=== PATIENT | female | born 1990 | race Caucasian/White ===

== ENCOUNTER 2016-07-17 11:14 | Emergency (ER) | payer OTHER ==
--- NOTE | 2016-07-17 11:57 | ED Physician Documentation ---
Sore Throat/Dental Pain - HISTORIAN Historian: patient - HPI Chief Complaint: Sore Throat Additional Information: sore throat pos for strept temp= 100.9--has freq strept throat resp well to amox Onset: days ago (2) Associated Symptoms: fever, chills, sore throat, mild, moderate, swollen glands. denies: unable to swallow, runny nose, cough - ROS CONST: no problems CVS/RESP: none GI/: denies: problems urinating, nausea, vomiting MS/SKIN/LYMPH: denies: muscle aches, rash, leg swelling, ankle swelling NEURO/PSYCH: denies: headache - PAST HX Past History: other (freqw prev strept throat) Immunizations: UTD Allergies/Adverse Reactions: Allergies Allergy/AdvReac Type Severity Reaction Status Date / Time No Known Drug Allergies Allergy Verified 07/17/16 11:53 Home Medications: Ambulatory Orders Medication Instructions Recorded NK [NK] 05/22/16 - SOCIAL HX Smoking History: less than 1 pack/day Alcohol Use: rarely Drug Use: none - FAMILY HX Family History: No - VITAL SIGNS Vital Signs: Vital Signs Temp Pulse Resp BP Pulse Ox 121/77 05/22/16 19:56 - REVIEWED ASSESSMENTS Nursing Assessment Reviewed: Yes Vitals Reviewed: Yes Sore throat Physical Exam - EXAM General Appearance: mild distress Head/Neck: head nml inspection, trachea midline, cervical lymphadenopathy, anterior. No: no lymphadenopathy, pain over sinuses, mandibular swelling (R), mandibular swelling (L) Eyes: eyes nml inspection Mouth/Throat: lips nml, gums nml, voice nml, no drooling, no air way problems. No: pharynx nml Ear/Nose: nml inspection Respiratory: no resp. distress, breath sounds nml CVS: reg. rate & rhythm, heart sounds nml Abdomen: soft, non-tender Extremities: non-tender, nml ROM Skin: warm/dry, normal color. No: cyanosis, diaphoresis, jaundice Neuro/Psych: oriented x3, mood/affect nml Discharge Clincal Impression: Streptococcal sore throat Home Medications: Ambulatory Orders NK [NK] 05/22/16 Condition: Good Disposition: 01 HOME, SELF-CARE Decision to Admit: NO Decision Time: 12:00
[2016-07-17 11:58] VITALS: BP 126/77
== END 2016-07-17 12:12 | disposition home or self-care (01) ==
LOC: ED 11:14
DX: J02.0 Streptococcal pharyngitis (principal); F17.210 Nicotine dependence, cigarettes, uncomplicated
CPT/HCPCS: 87880; 99283

== ENCOUNTER 2017-08-21 15:22 | Emergency (ER) | payer SELFPAY ==
--- NOTE | 2017-08-21 15:42 | ED Physician Documentation ---
Sore Throat/Dental Pain - HISTORIAN Historian: patient - HPI Chief Complaint: Sore Throat Additional Information: 2 day history of nasal drainage, green, no blood. has devleoped a sore throat. Not having much sinus pressure. Eyes have been watering some. No cough, nausea, vomiting or diarrhea. No other family members sick. Onset: days ago (2 days) Associated Symptoms: sore throat. denies: fever, chills Further Comments: no - ROS CONST: no problems - PAST HX Past History: none Other History: none Immunizations: referred to PCP Allergies/Adverse Reactions: Allergies Allergy/AdvReac Type Severity Reaction Status Date / Time No Known Drug Allergies Allergy Verified 07/17/16 11:53 Home Medications: Ambulatory Orders Medication Instructions Recorded Amoxicillin [Trimox] 500 mg PO TID #60 tab.chew 07/17/16 - SOCIAL HX Smoking History: less than 1 pack/day Alcohol Use: none Drug Use: none - FAMILY HX Family History: Yes - VITAL SIGNS Vital Signs: Vital Signs Temp Pulse Resp BP Pulse Ox 126/77 07/17/16 12:12 ED Results Lab/Radiology - Orders Orders: ED Orders Category Date Time Status Rapid Strep [GRP A STREP SCREEN] Routine Lab 08/21/17 Ordered Sore throat Physical Exam - EXAM General Appearance: no acute distress, alert Head/Neck: head nml inspection, trachea midline, no lymphadenopathy, thyroid nml. No: pain over sinuses Mouth/Throat: lips nml, gums nml, pharyngeal erythema (mild). No: gum swelling around teeth, tonsillar exudate, tonsillar swelling Ear/Nose: nml inspection Respiratory: no resp. distress, breath sounds nml, respiratory distress. No: wheezes, rales, rhonchi CVS: reg. rate & rhythm, heart sounds nml Extremities: non-tender, nml ROM Skin: warm/dry, normal color Neuro/Psych: oriented x3, mood/affect nml Discharge Clincal Impression: Viral illness Referrals: Primary Doctor,No [Primary Care Provider] - 2 Days Additional Instructions: Drink a lot of fluids. Gargle with salt water. Use throat lozenges to help with sore throat. Try using some Claritin or Zrytex to help with nasal drainage. A throat culture will be sent off. Condition: Stable Disposition: 01 HOME, SELF-CARE Decision to Admit: NO Date of Decison to Admit: 08/21/17 Decision Time: 15:49
[2017-08-21 15:46] VITALS: BP 109/73
== END 2017-08-21 15:59 | disposition home or self-care (01) ==
LOC: ED 15:22
DX: B34.9 Viral infection, unspecified (principal)
CPT/HCPCS: 87070; 87880; 99282

== ENCOUNTER 2017-09-12 18:56 | Emergency (ER) | payer SELFPAY ==
[2017-09-12 19:14] VITALS: BP 123/86
[2017-09-12] MEDS ORDERED: PENICILLIN G BENZATHINE 1,200,000 UNITS INJ IM ONE (19:23)
--- NOTE | 2017-09-12 19:23 | ED Physician Documentation ---
Sore Throat/Dental Pain - HISTORIAN Historian: patient - HPI Stated Complaint: Sore throat Chief Complaint: Sore Throat Further Comments: yes (26 year old female patient presents with complaints of sore throat which started 4 days ago; c/o severe pain with swollowing.) - ROS CONST: no problems CVS/RESP: none GI/: denies: nausea, vomiting MS/SKIN/LYMPH: denies: muscle aches, rash, leg swelling, ankle swelling, other NEURO/PSYCH: denies: none Comment: LMP - 2 weeks ago - PAST HX Past History: none Immunizations: UTD Allergies/Adverse Reactions: Allergies Allergy/AdvReac Type Severity Reaction Status Date / Time No Known Drug Allergies Allergy Verified 09/12/17 19:14 Home Medications: Ambulatory Orders Medication Instructions Recorded NK [NK] 09/12/17 - SOCIAL HX Smoking History: non-smoker - FAMILY HX Family History: No - VITAL SIGNS Vital Signs: Vital Signs Temp Pulse Resp BP Pulse Ox 100.3 F H 88 16 123/86 96 09/12/17 18:56 09/12/17 18:56 09/12/17 18:56 09/12/17 18:56 09/12/17 18:56 - REVIEWED ASSESSMENTS Nursing Assessment Reviewed: Yes Vitals Reviewed: Yes ED Results Lab/Radiology - Orders Orders: ED Orders Category Date Time Status Penicillin G Benzathine [Bicillin l-A] Med 09/12/17 19:23 Discontinued 1,200,000 units IM NOW ONE Sore throat Physical Exam - EXAM General Appearance: mild distress Head/Neck: head nml inspection, trachea midline, no lymphadenopathy, thyroid nml , neck nml inspection Mouth/Throat: lips nml, gums nml, voice nml, no drooling, no air way problems, no thrush, membranes nml, pharyngeal erythema, tonsillar exudate, tonsillar swelling Respiratory: no resp. distress, breath sounds nml CVS: reg. rate & rhythm, heart sounds nml Skin: normal color, warm/dry, NR, INT, PAL, DR Neuro/Psych: oriented x3, mood/affect nml Discharge Clincal Impression: Strep pharyngitis Referrals: Primary Doctor,No [Primary Care Provider] - 2 Days Additional Instructions: Chloraseptic spray or lozenges as needed for throat pain. Warm salt water gargles as needed pain Increase your fluid intake juices, hot tea, non-caffeinated beverages If you are congested - You may want to try Vicks rub on your chest and/or feet Use a humidifier in the room where you sleep. You can also sit in a steam filled bathroom 1-2 times a day. Tylenol or Ibuprofen as needed for fever, pain and body aches. 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 Condition: Stable Decision to Admit: NO Decision Time: 19:32
== END 2017-09-12 19:40 | disposition home or self-care (01) ==
LOC: ED 18:56
DX: J02.0 Streptococcal pharyngitis (principal)
CPT/HCPCS: 87880; 96372; 99283; J0561

== ENCOUNTER 2018-01-11 09:22 | Emergency (ER) | payer SELFPAY ==
--- NOTE | 2018-01-11 09:30 | ED Physician Documentation ---
Sore Throat/Dental Pain - HISTORIAN Historian: patient - HPI Stated Complaint: sore throat x 3 days Chief Complaint: Sore Throat Onset: days ago (3) Context: Possible Infection Associated Symptoms: sore throat, moderate, runny nose, congestion, R ear pain, L ear pain, cough, other (headache ). denies: fever, chills, unable to swallow Worsened By: nothing Further Comments: yes (she reports she has had strep "a lot" and she notes mild sore throat 3 days ago. No fever. She has headahce diarrhea. She has had strep exposure at work.) - ROS CONST: no problems CVS/RESP: denies: chest pain, shortness of breath GI/: denies: nausea, vomiting MS/SKIN/LYMPH: denies: rash - PAST HX Past History: none Other History: none Immunizations: UTD Allergies/Adverse Reactions: Allergies Allergy/AdvReac Type Severity Reaction Status Date / Time No Known Drug Allergies Allergy Verified 01/11/18 09:36 Home Medications: Ambulatory Orders Medication Instructions Recorded NK [NK] 09/12/17 - SOCIAL HX Smoking History: non-smoker Alcohol Use: none Drug Use: none - FAMILY HX Family History: No - VITAL SIGNS Vital Signs: Vital Signs Temp Pulse Resp BP Pulse Ox 98.0 F 78 14 116/83 96 01/11/18 09:29 01/11/18 09:29 01/11/18 09:29 01/11/18 09:29 01/11/18 09:29 - REVIEWED ASSESSMENTS Nursing Assessment Reviewed: Yes Vitals Reviewed: Yes ED Results Lab/Radiology - Lab Results Lab Results: Lab Results 01/11/18 09:41 Group A Strep Screen Negative (NEGATIVE) - Orders Orders: ED Orders Category Date Time Status GRP A STREP SCREEN Routine Lab 01/11/18 09:41 Completed THROAT CULTURE Routine Lab 01/11/18 09:41 Received Sore throat Physical Exam - EXAM General Appearance: no acute distress, alert Head/Neck: head nml inspection, no lymphadenopathy. No: facial erythema Eyes: eyes nml inspection, PERRL Mouth/Throat: lips nml, gums nml, pharynx nml. No: pharyngeal erythema Ear/Nose: nml inspection Respiratory: no resp. distress CVS: reg. rate & rhythm, heart sounds nml Abdomen: soft, normal bowel sounds Extremities: non-tender Skin: warm/dry, normal color Neuro/Psych: oriented x3, mood/affect nml Discharge Clincal Impression: Viral illness Referrals: Primary Doctor,No [Primary Care Provider] - 2 Days Additional Instructions: 1. OTC meds as need for symptoms 2. Increase fluids 3. Rest 4. Good handwashing 5. See PCP if no improvement in 2-4 days 6. Return to ER for any concerns Condition: Stable Disposition: 01 HOME, SELF-CARE Decision to Admit: NO Date of Decison to Admit: 01/11/18 Decision Time: 09:47
[2018-01-11 11:24] VITALS: BP 114/80
== END 2018-01-11 09:59 | disposition home or self-care (01) ==
LOC: ED 09:22
DX: B34.9 Viral infection, unspecified (principal)
CPT/HCPCS: 87070; 87880; 99283